=== PATIENT | female | born 2000 | race Caucasian/White ===

== ENCOUNTER 2018-04-07 09:53 | Day surgery (SDC) | payer MEDICAID ==
[2018-04-07] MEDS ORDERED: Morphine 10 mg/5 ml Oral Soln PO PRN (10:17)
[2018-04-07] MEDS ORDERED: Dextrose 5%/0.45% NS 1,000 ML IV SCH (10:30)
[2018-04-07] MEDS ORDERED: Propofol 10 mg/ml Inj (20 ML) ONE (10:53)
[2018-04-07] MEDS ORDERED: Midazolam 2 MG/2 ML VIAL ONE (10:54)
[2018-04-07] MEDS ORDERED: ceFAZolin 1 gm in NS 1 GM/100 ML BAG IVPB ONE (10:58)
[2018-04-07 13:21] VITALS: RESP 16; TEMP 98.8
[2018-04-07 13:49] VITALS: BP 106/69; PULSE 71; O2SAT 99
--- NOTE | 2018-04-07 22:59 | OP ---
PROCEDURE DATE: 04/07/2018 PREOPERATIVE DIAGNOSIS: Enlarged adenoids and tonsils. POSTOPERATIVE DIAGNOSIS: Enlarged adenoids and tonsils. PROCEDURE: Adenoidectomy, tonsillectomy. SIGNIFICANT FINDINGS: Large adenoids and tonsils. DESCRIPTION OF PROCEDURE: The patient was brought into the room, placed in supine position. Anesthesia was initiated through an ET tube. Shoulder roll was placed, neck extended. The patient was draped in the usual manner. Mouth gag was placed in oral cavity, opened and suspended on the [employer] the usual manner. Right tonsil was grabbed, pulled medially. Incision was made in the anterior tonsillar pillar using coblation. Dissection was done between tonsil and tonsillar fossa using coblation until the tonsil was removed. Bleeding was controlled using coblation. Next, the other tonsil was grabbed, pulled medially. Incision was made in the anterior tonsillar pillar using coblation. Dissection was done between tonsil and tonsillar fossa using coblation until the tonsil was removed. Bleeding was controlled using coblation. Red rubber catheters were inserted into the nasal cavity, taken out of mouth, and clamped in order to provide retraction of soft palate. Mirror was used to visualize the adenoids which were noted to be enlarged and melted down using coblation. Bleeding was controlled using coblation. The red rubber catheters were removed. The mouth gag was taken down and removed. The patient was taken off anesthesia and taken to recovery room in stable manner. Félix Jang MD
== END 2018-04-07 13:55 | disposition home or self-care (01) ==
LOC: C.SDS 09:53
PROVIDERS: ATTEND Otolaryngology
DX: J35.2 Hypertrophy of adenoids (principal)
CPT/HCPCS: 42821; 88304; J0690; J1100; J2250; J2704; J3010